=== PATIENT | male | born 1980 | race Hispanic/Latino ===

== ENCOUNTER 2020-12-25 13:20 | Observation (INO) | payer OTHER ==
[~2020-12-25] VITALS: Ht 160 cm; Wt 62.0 kg
[2020-12-25] MEDS ORDERED: ONDANSETRON HCL 4 MG/2 ML VIAL ONE (13:36)
[2020-12-25] MEDS ORDERED: CEFAZOLIN SODIUM 1 GM VIAL ONE (13:36)
[2020-12-25] MEDS ORDERED: SODIUM CHLORIDE 0.9% 100 ML IV ONE (13:37)
[2020-12-25] MEDS ORDERED: MORPHINE SULFATE 4 MG/1ML SYG ONE (13:37)
[2020-12-25] MEDS ORDERED: SODIUM CHLORIDE 0.9% 1000ML 1,000 ML IV ONE (13:37)
[2020-12-25 13:38] LABS: BASOPHILS % (AUTO) 0.5 % (0.0-5.0); EOSINOPHILS % (AUTO) 1.5 % (0.0-8.0); HEMATOCRIT 44.3 % (42-54); LYMPHOCYTES % (AUTO) 34.6 % (21.0-51.0); MEAN CORPUSCULAR HEMOGLOBIN 30.5 pg (27.0-33.0); MEAN CORPUSCULAR HGB CONC 34.3 g/dL (32.0-36.0); MONOCYTES % (AUTO) 7.6 % (3.0-13.0); NEUTROPHILS % (AUTO) 55.5 % (40.0-77.0); PLATELET COUNT (AUTO) 377 K/uL (130-400); RED BLOOD CELL COUNT(AUTO) 4.98 MIL/uL (4.50-6.20); RED CELL DISTRIBUTION WIDTH 12.4 % (11.0-15.5); WHITE BLOOD COUNT (AUTO) 7.4 K/uL (4.8-10.8)
[2020-12-25 13:45] LABS: POTASSIUM 3.3 mmol/L (3.5-5.1)
[2020-12-25 13:50] LABS: BILIRUBIN,TOTAL 0.4 mg/dL (0.2-1.0); TOTAL PROTEIN, SERUM 7.3 g/dL (6.0-8.3)
[2020-12-25] MEDS ORDERED: TETANUS/DIPHTHERIA TOXOID [ADULT] 0.5 ML VIAL IM ONE (14:11)
[2020-12-25] MEDS ORDERED: POTASSIUM BICARB/CIT AC 25 MEQ TABLET.EFF ONE (14:11)
[2020-12-25] MEDS ORDERED: LIDOCAINE HCL 1% 20 ML VIAL ONE (14:55)
[2020-12-25] MEDS ORDERED: ACETAMINOPHEN 325 MG TAB PO PRN ×2 (15:30)
[2020-12-25] MEDS ORDERED: ONDANSETRON HCL 4 MG/2 ML VIAL IV PRN (15:30)
[2020-12-25] MEDS: CEFAZOLIN SODIUM 1 GM VIAL IVP SCH (15:30)
[2020-12-25 21:20] VITALS: BP 139/92
[2020-12-25] MEDS ORDERED: LIDOCAINE HCL-MPF 1% 2ML VIAL IV PRN (21:45)
[2020-12-25] MEDS ORDERED: POTASSIUM CHLORIDE 10% ELIXIR 20 MEQ/15 ML UDCUP PO PRN (21:45)
[2020-12-25] MEDS ORDERED: POTASSIUM CHLORIDE 20 MEQ ERTAB PO PRN (21:45)
[2020-12-25] MEDS ORDERED: POTASSIUM CHLORIDE 20MEQ/100ML 100 ML IV PRN (21:45)
[2020-12-25] MEDS ORDERED: POTASSIUM CHLORIDE 20 MEQ ERTAB PO ONE (21:57)
[2020-12-25] MEDS: MORPHINE SULFATE 2 MG/ML 1ML SYG IV PRN (22:14)
[2020-12-25 23:38] VITALS: BP 130/71
[2020-12-26] VITALS (16 sets, daily range): BP systolic 98–147; BP diastolic 53–91
[2020-12-26] MEDS: CEFAZOLIN SODIUM 1 GM VIAL IVP SCH ×2 (02:59→16:28)
[2020-12-26] MEDS: MORPHINE SULFATE 2 MG/ML 1ML SYG IV PRN (03:05)
[2020-12-26 05:43] LABS: BASOPHILS % (AUTO) 0.5 % (0.0-5.0); EOSINOPHILS % (AUTO) 1.2 % (0.0-8.0); HEMATOCRIT 45.7 % (42-54); LYMPHOCYTES % (AUTO) 29.9 % (21.0-51.0); MEAN CORPUSCULAR HEMOGLOBIN 29.6 pg (27.0-33.0); MEAN CORPUSCULAR VOLUME 89.6 fL (79-99); MONOCYTES % (AUTO) 8.7 % (3.0-13.0); NEUTROPHILS % (AUTO) 59.5 % (40.0-77.0); PLATELET COUNT (AUTO) 349 K/uL (130-400); RED CELL DISTRIBUTION WIDTH 12.3 % (11.0-15.5); WHITE BLOOD COUNT (AUTO) 8.9 K/uL (4.8-10.8)
[2020-12-26 06:07] LABS: ALBUMIN 3.6 g/dL (3.5-5.0); BILIRUBIN,TOTAL 0.4 mg/dL (0.2-1.0); CREATININE 0.8 mg/dL (0.5-1.5); POTASSIUM 4.3 mmol/L (3.5-5.1)
[2020-12-26] MEDS ORDERED: CEFAZOLIN SODIUM 1 GM VIAL ONE ×2 (12:50→13:44)
[2020-12-26] MEDS ORDERED: MIDAZOLAM HCL 1 MG/ML 2ML VIAL ONE (13:26)
[2020-12-26] MEDS ORDERED: LIDOCAINE HCL 2% 20ML ONE (13:26)
[2020-12-26] MEDS ORDERED: FENTANYL CITRATE PF 50 MCG/1 ML 2ML VIAL ONE (13:27)
[2020-12-26] MEDS ORDERED: PROPOFOL 10 MG/ML 20ML VIAL IV ONE (13:35)
[2020-12-26] MEDS ORDERED: CLIN300C10 PO (15:10)
[2020-12-26] MEDS ORDERED: ACET-2247 PO (15:10)
== END 2020-12-26 19:03 | disposition home or self-care (01) ==
LOC: EDH 13:20 → EDHIP 13:21 → 3BH 20:37
PROVIDERS: ADMIT Family Medicine; ATTEND Family Medicine
DX: S68.122A Partial traumatic metacarpophalangeal amputation of right middle finger, initial encounter (principal); Z20.822 Contact with and (suspected) exposure to COVID-19; E87.6 Hypokalemia; F17.200 Nicotine dependence, unspecified, uncomplicated; F12.90 Cannabis use, unspecified, uncomplicated; Z23 Encounter for immunization; W23.1XXA Caught, crushed, jammed, or pinched between stationary objects, initial encounter; Y93.89 Activity, other specified; Y92.812 Truck as the place of occurrence of the external cause
CPT/HCPCS: 26236; 36415 ×2; 73130; 73140; 80053 ×2; 85025 ×2; 87426; 90471; 90714; 96374; 96375; 96376; 99291; A4565; A4606; A4930; C1713; G0378 ×26; J0690 ×4; J2250; J2270; J2405; J2704; J3010; J3490; J7030; U0003